=== PATIENT | female | born 1960 | race Caucasian/White ===

== ENCOUNTER 2017-07-05 17:21 | Emergency (ER) | payer MEDICARE, OTHER | END 2017-07-05 18:07 | disposition home or self-care (01) | LOC: M ED 17:21 | DX: Z76.0 Encounter for issue of repeat prescription (principal); M54.5 Low back pain; G89.29 Other chronic pain; Z98.1 Arthrodesis status; Z88.8 Allergy status to other drugs, medicaments and biological substances; Z79.899 Other long term (current) drug therapy; Z79.891 Long term (current) use of opiate analgesic | CPT/HCPCS: 99282 ==

== ENCOUNTER 2018-12-07 22:10 | Inpatient (IN) | payer MEDICARE, OTHER ==
[~2018-12-07] VITALS: Ht 170.2 cm; Wt 59.1 kg
[~2018-12-07 22:10] MED LIST: AMIT25TA PO; CYCL10TA PO; CYMB60CA3 PO; OXYCO5TA GT; ROPI2TAB PO
[2018-12-07] MEDS ORDERED: ROPI2TAB PO (23:23)
[2018-12-08] MEDS ORDERED: LORazepam 1 MG TAB PO ONE ×2 (07:30→18:00)
[2018-12-08] MEDS ORDERED: MAALOX 30 ML SUSP *UDC PO PRN (13:00)
[2018-12-08] MEDS ORDERED: rOPINIRole 2MG TAB PO PRN (13:00)
[2018-12-08] MEDS ORDERED: MOM 30ML SUSPENSION UDC PO PRN (13:00)
[2018-12-08 15:06] VITALS: BP 130/68
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
[2018-12-08 15:10] VITALS: BP 130/68
[2018-12-08] MEDS: MULTIVITAMINS/MINERALS THERAP 1 TAB PO SCH (16:24)
[2018-12-08 19:39] VITALS: BP 146/80
[2018-12-08] MEDS: LORazepam 2 MG TAB PO PRN (19:45)
[2018-12-08] MEDS ORDERED: LOPERAMIDE 2 MG CAPLET PO ONE (20:00)
[2018-12-08] MEDS: traZODone 50 MG TAB PO PRN (20:35)
[2018-12-08] MEDS: THIAMINE 100 MG TAB PO SCH (20:35)
[2018-12-09 05:00] VITALS: BP 122/59
[2018-12-09 06:30] VITALS: BP 122/59
[2018-12-09 06:38] LABS: BASO # 0.1 10^3/uL (0.0-0.2); BASO % 1.1 % (0.0-1.0); EOS # 0.1 10^3/uL (0.0-0.5); EOS % 1.9 % (0.0-3.0); HEMATOCRIT 41.8 % (36.0-47.0); HEMOGLOBIN 14.8 g/dl (12.0-15.5); LYMPH # 2.4 10^3/uL (1.5-5.0); LYMPH % 44.7 % (24.0-44.0); MEAN CORPUSCULAR HEMOGLOBIN 31.7 pg (27.0-33.0); MEAN CORPUSCULAR HGB CONC 35.4 g/dl (32.0-36.5); MEAN CORPUSCULAR VOLUME 89.5 fl (80.0-96.0); MONO # 0.5 10^3/uL (0.0-0.8); MONO % 9.2 % (0.0-5.0); NEUTROPHILS # 2.3 10^3/uL (1.5-8.5); NEUTROPHILS % 42.7 % (36.0-66.0); PLATELET COUNT, AUTOMATED 304 10^3/uL (150-450); RED BLOOD COUNT 4.67 10^6/uL (4.00-5.40); WHITE BLOOD COUNT 5.4 10^3/uL (4.0-10.0)
[2018-12-09 07:17] LABS: ALT/SGPT 21 U/L (12-78); BILIRUBIN,TOTAL 1.3 MG/DL (0.2-1.0); BLOOD UREA NITROGEN 8 MG/DL (7-18); CALCIUM LEVEL 9.7 MG/DL (8.5-10.1); CARBON DIOXIDE LEVEL 29 MEQ/L (21-32); CHLORIDE LEVEL 105 MEQ/L (98-107); CREATININE FOR GFR 0.66 MG/DL (0.55-1.30); GLOMERULAR FILTRATION RATE > 60.0 (>51); GLUCOSE, FASTING 92 MG/DL (70-100); POTASSIUM SERUM 4.4 MEQ/L (3.5-5.1); SODIUM LEVEL 138 MEQ/L (136-145); TOTAL PROTEIN 7.3 GM/DL (6.4-8.2)
[2018-12-09 07:18] LABS: ALBUMIN 3.8 GM/DL (3.2-5.2); FREE THYROXINE INDEX 3.3 % (1.3-4.8); T UPTAKE 33 % (30-39); THYROXINE (T4) 10.1 UG/DL (4.5-12.0)
[2018-12-09 08:45] VITALS: BP 144/70
[2018-12-09] MEDS: LORazepam 2 MG TAB PO PRN (08:50)
[2018-12-09] MEDS: MULTIVITAMINS/MINERALS THERAP 1 TAB PO SCH (08:50)
[2018-12-09] MEDS: THIAMINE 100 MG TAB PO SCH ×2 (08:50→21:49)
[2018-12-09] MEDS: FOLIC ACID 1 MG TAB PO SCH (08:50)
[2018-12-09] MEDS: ACETAMINOPHEN TAB 650MG DOSE (2X325MG) PO PRN (08:51)
--- NOTE | 2018-12-09 10:16 | REP ---
Four views right wrist: 12/09/2018. Indication: Right wrist pain. Findings: There is no acute fracture, subluxation or dislocation. Osseous alignment is anatomic. No erosive osseous lesions are detected. Mild medial soft tissue edema is noted. Impression: No acute fracture. Electronically Signed by Ritesh Schuster DO 12/09/2018 10:08 A
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
[2018-12-09] MEDS: traMADol 50 MG TAB PO PRN (13:39)
[2018-12-09 13:40] VITALS: BP 123/74
[2018-12-09] MEDS ORDERED: diphenhydrAMINE 50 MG CAP PO ONE (15:00)
[2018-12-09] MEDS ORDERED: LORazepam 2 MG TAB PO ONE (15:00)
[2018-12-09] MEDS ORDERED: OLANZapine ORAL DISINTEGRATING TAB 5MG PO ONE (15:00)
[2018-12-09 16:51] VITALS: BP 124/74
[2018-12-09] MEDS: traZODone 50 MG TAB PO PRN (21:49)
[2018-12-10 06:15] VITALS: BP 142/89
[2018-12-10] MEDS: FOLIC ACID 1 MG TAB PO SCH (09:34)
[2018-12-10] MEDS: THIAMINE 100 MG TAB PO SCH ×2 (09:34→21:00)
[2018-12-10] MEDS: MULTIVITAMINS/MINERALS THERAP 1 TAB PO SCH (09:34)
--- NOTE | 2018-12-10 11:28 | MHIPNPDOC ---
[facility] Progress Note Progress Note Inpatient Progress Note Nayely Webster MRN: N/A Date of : N/A Date of Service: 12/10/2018 History of Present Illness The patient is a 58-year-old woman with a history of PTSD, [facility] She reportedly had difficulty with severe agitation, increasing alcohol use and difficulty lashing out at her where she became extremely violent and unable to be controlle d. She was noted to be in the ER slamming her head and claims she had triggered PTSD by reported medical problems namely chronic pain. When I attempted to me with her, she had just been sedated due to increasing agitation and was fairly tired and sleepy. She did report she had had a history of trauma and had increasing anxiety, intrusive memories, flashbacks and difficulty controlling her anger with sudden yelling and screaming. She reports that she utilizes the alcohol for chronic pain. Her is very supportive and reports that this is unusual for the patient and this is fairly unusual for her baseline behaviors. Interval History The patient is met with this evening. She has been doing better. She did have some episodes of being irritated and upset, however she was given Haldol which was quite helpful. She reports the Haldol helps the level of her mood and makes her much less agitated. She was friendly and amenable when I met with her. Nursing staff notes that at times she become agitated, however it appears that is more of a cluster B specific issue where she focuses on certain individuals that she does not like and does not wish to work with where she becomes irritated, however she has generally been friendly with certain staff. She describes that she is doing better but wishes to go home tomorrow as she feels she has found the maximum benefit she will get here. She reports she is unhappy with the various psychotic individuals on her unit that stare at her and reports that she would like to be discharged tomorrow. She reports she is tolerating the Haldol well and feels good. Review Of Systems General: Denies fever or appetite changes Cardiovascular: Denies Chest pain or palpitations GI: Denies Nausea, vomiting, or bowel changes Respiratory: Denies shortness of breath or cough Neuro: Denies dizziness, tremors Derm: Denies any rashes or pruritus : Denies dysuria or urinary dysfunction MSK: Denies any muscle tightness or stiffness HEENT: Denies any vision changes or headaches Heme/Lymph: denies any bruising or bleeding Endo: denies any cold/heat intolerance or water intake changes Psychotherapy None on this visit. Vital Signs Reviewed. Mental Status Examination General: Well dressed with good hygiene Speech: Spontaneous and fluid Thought processes: Linear and logical MSK: Smooth and coordinated gait, no signs of tremors or involuntary orofacial movements Thought content: Future orientated Abstract reasoning, and computation: Intact Description of associations: Intact Description of abnormal or psychotic thoughts: Denies any suicidal or homicidal ideation. Denies any auditory or visual hallucinations. Does not appear to be responding to internal stimuli. Does not appear to be endorsing any bizarre or paranoid ideation. Judgment: fair Insight: fair Orientation: Alert and orientated 3 Cognition: Grossly normal Recent and remote memory: Intact Attention span and concentration: Intact Fund of knowledge: Adequate Mood: "okay" Affect: Euthymic with a full range. Diagnoses PTSD, acute. Alcohol use disorder, unspecified. Somatic symptom disorder with predominant pain. Assessment and Plan PTSD: We will order Haldol 5 mg BID, appears to be helpful. Discussed with the patient the risks, benefits and potential side effects of Haldol as well as the long-term risks of abuse with tardive dyskinesia as well as alternatives. Discussed the off-label nature of Haldol and the use in PTSD. Alcohol use disorder: We will have alcohol withdrawal prophylaxis. Disposition Discharge tomorrow. Time Spent 15 minutes [id number]. Vital Signs Vital Signs Date Time Temp Pulse Resp B/P (MAP) Pulse Ox O2 Delivery O2 Flow Rate FiO2 12/10/18 06:15 98.2 92 18 142/89 (106) 12/08/18 15:10 99 Room Air Current Medications Current Medications Medications (Trade) Dose Ordered Sig/Korey Route PRN Reason Start Time Stop Time Status Last Admin Dose Admin Acetaminophen (Tylenol Tab) 650 mg Q6HP PRN PO HEADACHE or DISCOMFORT 12/08/18 13:00 12/09/18 08:51 Al Hydrox/Mg Hydrox/Simethicone (Mylanta) 30 ml Q4HP PRN PO HEARTBURN/INDIGESTION 12/08/18 13:00 Folic Acid (Folic Acid) 1 mg DAILY PO 12/09/18 09:00 12/10/18 09:34 Home Med (Med Rec Complete!) ASDIRECTED XX 12/08/18 13:45 12/08/18 13:45 DC Lorazepam (Ativan) 2 mg ASDIRECTED PRN PO SEE PROTOCOL 12/08/18 13:00 12/09/18 08:50 Magnesium Hydroxide (Milk Of Magnesia) 30 ml DAILYPRN PRN PO CONSTIPATION 12/08/18 13:00 Multivitamins (Theragram-M) 1 tab DAILY PO 12/08/18 09:00 12/10/18 09:34 Ropinirole HCl (Requip) 2 mg TID PRN PO RESTLESSNESS 12/08/18 13:00 Thiamine HCl (Thiamine HCl) 100 mg BID PO 12/08/18 21:00 12/11/18 20:59 12/10/18 09:34 Tramadol HCl (Ultram) 50 mg Q12HP PRN PO PAIN 12/08/18 15:00 12/09/18 13:39 Trazodone HCl (Desyrel) 50 mg QHSP PRN PO INSOMNIA 12/08/18 13:00 12/09/18 21:49 Allergies Coded Allergies: adhesive (Verified Allergy, Severe, RASH ALL OVER BODY, 12/07/18) DERMABOND pregabalin (Verified Allergy, Intermediate, oral swelling, 12/07/18) gabapentin (Verified Adverse Reaction, Intermediate, night terrors, 12/07/18) CINDY LEACH DO Dec 10, 2018 11:28
[2018-12-10] MEDS: HALOPERIDOL 10 MG TAB PO PRN (12:48)
[2018-12-10] MEDS: traMADol 50 MG TAB PO PRN (12:51)
[2018-12-10 14:09] VITALS: BP 140/88
[2018-12-10] MEDS: LORazepam 2 MG TAB PO PRN (14:13)
[2018-12-10 18:00] VITALS: BP 110/58
[2018-12-10] MEDS: HALOPERIDOL 5 MG TAB PO SCH (20:59)
[2018-12-11 06:58] VITALS: BP 129/74
[2018-12-11] MEDS: HALOPERIDOL 10 MG TAB PO PRN (07:40)
[2018-12-11] MEDS: traMADol 50 MG TAB PO PRN (07:40)
--- NOTE | 2018-12-11 09:06 | MHDSPDOC ---
[facility] Discharge Summary Discharge Summary DATE OF ADMISSION: Dec 08, 2018 at 12:50 DATE OF DISCHARGE: 12/11/18 Nayely Webster Discharge Nayely Webster Select Gender MRN: N/A Date of : MM/DD/YYYY Date of Service: 12/11/2018 Diagnoses PTSD, acute. Alcohol use disorder, unspecified. Somatic symptom disorder with predominant pain. History of Present Illness The patient is a 58-year-old woman with a history of PTSD, [facility] She reportedly had difficulty with severe agitation, increasing alcohol use and difficulty lashing out at her where she became extremely violent and unable to be controlled. She was noted to be in the ER slamming her head and claims she had triggered PTSD by reported medical problems namely chronic pain. When I attempted to me with her, she had just been sedated due to increasing agitation and was fairly tired and sleepy. She did report she had had a history of trauma and had increasing anxiety, intrusive memories, flashbacks and difficulty controlling her anger with sudden yelling and screaming. She reports that she utilizes the alcohol for chronic pain. Her is very supportive and reports that this is unusual for the patient and this is fairly unusual for her baseline behaviors. Consultants Involved Hospitalist/PCP screening Treatment and Progress On The Unit The patient was admitted to the inpatient unit where she was noted to have some initial agitation, however, was never violent or severely aggressive. She did require some PRN medications and she knows that the Haldol was fairly helpful for her mood. She was started on Haldol 5 mg BID with positive effects. The patient improved and was able to engage in better engagement with the treatment team. She did still have some symptoms of irritation and anxiety, however, she requested to leave and no wonder wish to stay on a voluntary admission. On the day of discharge, she did not meet involuntary criteria as she had been denying suicidal or homicidal ideation throughout her admission. Her balance remained in behavioral control for the most part during her admission, it was not significantly impaired so much so that she is unable to care for herself by her mental illness and was able to cooperate with her discharge planning sufficiently well and thus was discharged in good pace. Discharge Assessment 58-year-old woman with a history of PTSD and possible reactivation symptoms, presents after becoming more aggressive at home. She is treated with Haldol. She has a history of being treated with antidepressants with no results. Mental Status Examination General: Well dressed with good hygiene Speech: Spontaneous and fluid Thought processes: Linear and logical MSK: Smooth and coordinated gait, no signs of tremors or involuntary orofacial movements Thought content: Future orientated Abstract reasoning, and computation: Intact Description of associations: Intact Description of abnormal or psychotic thoughts: Denies any suicidal or homicidal ideation. Denies any auditory or visual hallucinations. Does not appear to be responding to internal stimuli. Does not appear to be endorsing any bizarre or paranoid ideation. Judgment: fair Insight: fair Orientation: Alert and orientated 3 Cognition: Grossly normal Recent and remote memory: Intact Attention span and concentration: Intact Fund of knowledge: Adequate Mood: "okay" Affect: Euthymic with a full range Follow Up The social work team worked during the predischarge meeting in order to evaluate for further issues of lethality address them fully before discharge. They worked on safety planning with the patient's family members in order to ensure that the patient will have a safe and effective discharge. Time Spent The amount of time spent in the coordination of care for this patient was approximately 30 minutes. Vital Signs/I&Os Vital Signs Date Time Temp Pulse Resp B/P (MAP) Pulse Ox O2 Delivery O2 Flow Rate FiO2 12/11/18 07:40 18 12/11/18 06:58 97.3 58 129/74 (92) 12/08/18 15:10 99 Room Air Medications Scheduled Haloperidol (Haloperidol) 5 Mg Tablet, 5 MG PO BID for mood for 7 Days, #14 Scheduled PRN Ropinirole HCl (Ropinirole HCl) 2 Mg Tablet, 2 MG PO TID PRN for RESTLESSNESS, (Reported) Allergies Coded Allergies: adhesive (Verified Allergy, Severe, RASH ALL OVER BODY, 12/07/18) DERMABOND pregabalin (Verified Allergy, Intermediate, oral swelling, 12/07/18) gabapentin (Verified Adverse Reaction, Intermediate, night terrors, 12/07/18) CINDY LEACH DO Dec 11, 2018 09:06
[2018-12-11] MEDS ORDERED: HALO5TA PO (09:13)
[2018-12-11] MEDS: HALOPERIDOL 5 MG TAB PO SCH (09:33)
[2018-12-11] MEDS: THIAMINE 100 MG TAB PO SCH (09:33)
[2018-12-11] MEDS: MULTIVITAMINS/MINERALS THERAP 1 TAB PO SCH (09:33)
[2018-12-11] MEDS: FOLIC ACID 1 MG TAB PO SCH (09:33)
[2018-12-11] MEDS: ACETAMINOPHEN TAB 650MG DOSE (2X325MG) PO PRN (11:40)
== END 2018-12-11 11:55 | disposition home or self-care (01) | DRG 882 ==
LOC: M ED 22:10 → M ED INP 12-08 12:50 → M PSY 12-08 14:00
PROVIDERS: ADMIT Psychiatry & Neurology Addiction Medicine; ATTEND Psychiatry & Neurology Addiction Medicine
DX: F43.11 Post-traumatic stress disorder, acute (principal); F10.20 Alcohol dependence, uncomplicated; F45.1 Undifferentiated somatoform disorder; Z79.899 Other long term (current) drug therapy; Z88.8 Allergy status to other drugs, medicaments and biological substances; Z91.040 Latex allergy status; M54.5 Low back pain; M54.2 Cervicalgia; M79.601 Pain in right arm; M79.602 Pain in left arm; Z98.1 Arthrodesis status

== ENCOUNTER 2019-01-04 11:10 | Inpatient (IN) | payer MEDICARE, OTHER ==
[~2019-01-04] VITALS: Ht 170.2 cm; Wt 62.2 kg
[~2019-01-04 11:10] MED LIST changes: +HALO5TA PO; +NICOTINE 21MG/24HR 1 EA TRANSDERMAL TD SCH
[2019-01-04 12:04] LABS: HEMATOCRIT 49.3 % (36.0-47.0); HEMOGLOBIN 17.6 g/dl (12.0-15.5); MEAN CORPUSCULAR HEMOGLOBIN 31.9 pg (27.0-33.0); MEAN CORPUSCULAR HGB CONC 35.7 g/dl (32.0-36.5); MEAN CORPUSCULAR VOLUME 89.5 fl (80.0-96.0); PLATELET COUNT, AUTOMATED 428 10^3/uL (150-450); RED BLOOD COUNT 5.51 10^6/uL (4.00-5.40); WHITE BLOOD COUNT 8.5 10^3/uL (4.0-10.0)
[2019-01-04 12:33] LABS: ALBUMIN 4.4 GM/DL (3.2-5.2); ALT/SGPT 22 U/L (12-78); BILIRUBIN,DIRECT 0.2 MG/DL (0.0-0.2); BILIRUBIN,TOTAL 1.4 MG/DL (0.2-1.0); BLOOD UREA NITROGEN 9 MG/DL (7-18); CALCIUM LEVEL 9.6 MG/DL (8.5-10.1); CARBON DIOXIDE LEVEL 23 MEQ/L (21-32); CHLORIDE LEVEL 102 MEQ/L (98-107); CREATININE FOR GFR 0.69 MG/DL (0.55-1.30); GLOMERULAR FILTRATION RATE > 60.0 (>51); GLUCOSE, FASTING 121 MG/DL (70-100); POTASSIUM SERUM 3.8 MEQ/L (3.5-5.1); SALICYLATE LEVEL < 1.7 MG/DL (5.0-30.0); SODIUM LEVEL 137 MEQ/L (136-145); TOTAL PROTEIN 8.3 GM/DL (6.4-8.2)
[2019-01-04 12:34] LABS: ACETAMINOPHEN LEVEL < 2.0 UG/ML (10.0-30.0); ETHYL ALCOHOL (ETHANOL) < 0.003 % (0.000-0.010)
[2019-01-04 12:36] LABS: AMPHETAMINES LEVEL URINE NEGATIVE (NEGATIVE); BARBITURATES URINE NEGATIVE (NEGATIVE); BENZODIAZEPINES URINE NEGATIVE (NEGATIVE); CANNABINOIDS URINE POSITIVE (NEGATIVE); COCAINE METABOLITE URINE NEGATIVE (NEGATIVE); METHADONE URINE NEGATIVE (NEGATIVE); OPIATES URINE NEGATIVE (NEGATIVE); PHENCYCLIDINE URINE NEGATIVE (NEGATIVE)
[2019-01-04] MEDS ORDERED: LORazepam 2 MG TAB PO STA ×2 (13:43→16:23)
[2019-01-04] MEDS ORDERED: rOPINIRole 2MG TAB PO PRN (16:00)
[2019-01-04 19:11] VITALS: BP 141/81
[2019-01-04] MEDS: OLANZapine ORAL DISINTEGRATING TAB 5MG PO PRN (19:37)
[2019-01-05 06:24] VITALS: BP 130/88
[2019-01-05] MEDS: ACETAMINOPHEN TAB 650MG DOSE (2X325MG) PO PRN (08:05)
[2019-01-05] MEDS: MULTIVITAMINS/MINERALS THERAP 1 TAB PO SCH (09:00)
[2019-01-05] MEDS: FOLIC ACID 1 MG TAB PO SCH (09:00)
[2019-01-05] MEDS ORDERED: LORazepam 2 MG TAB PO PRN (10:30)
[2019-01-05] MEDS: THIAMINE 100 MG TAB PO SCH ×2 (10:30→21:50)
[2019-01-05 10:40] VITALS: BP 124/85
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
[2019-01-05] MEDS ORDERED: BUPRENORPHINE/NALOXONE 8-2MG SUBLINGUAL TABLET(SUBOXONE) SL ONE (15:00)
[2019-01-05 16:16] VITALS: BP 135/79
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
[2019-01-05] MEDS: OLANZapine ORAL DISINTEGRATING TAB 5MG PO PRN (21:50)
[2019-01-06 06:58] VITALS: BP 138/71
[2019-01-06] MEDS: MULTIVITAMINS/MINERALS THERAP 1 TAB PO SCH (08:30)
[2019-01-06] MEDS: THIAMINE 100 MG TAB PO SCH ×2 (08:30→20:11)
[2019-01-06] MEDS: FOLIC ACID 1 MG TAB PO SCH (08:31)
[2019-01-06] MEDS: BUPRENORPHINE/NALOXONE 8-2MG SUBLINGUAL TABLET(SUBOXONE) SL SCH (09:44)
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
[2019-01-06 16:55] VITALS: BP 150/75
[2019-01-06] MEDS: traZODone 50 MG TAB PO PRN (20:33)
[2019-01-07 05:54] VITALS: BP 127/77
[2019-01-07] MEDS: THIAMINE 100 MG TAB PO SCH ×2 (08:29→20:31)
[2019-01-07] MEDS: BUPRENORPHINE/NALOXONE 8-2MG SUBLINGUAL TABLET(SUBOXONE) SL SCH (08:29)
[2019-01-07] MEDS: MULTIVITAMINS/MINERALS THERAP 1 TAB PO SCH (08:29)
[2019-01-07] MEDS: FOLIC ACID 1 MG TAB PO SCH (08:29)
[2019-01-07] MEDS: ANALGESIC BALM CRM 120 GM TOP PRN ×2 (12:10→18:06)
[2019-01-07 16:12] VITALS: BP 148/75
[2019-01-07] MEDS: OLANZapine ORAL DISINTEGRATING TAB 5MG PO PRN (17:46)
[2019-01-07] MEDS: traZODone 50 MG TAB PO PRN (20:31)
[2019-01-08 06:33] VITALS: BP 149/62
[2019-01-08] MEDS: MULTIVITAMINS/MINERALS THERAP 1 TAB PO SCH (08:18)
[2019-01-08] MEDS: BUPRENORPHINE/NALOXONE 8-2MG SUBLINGUAL TABLET(SUBOXONE) SL SCH (08:18)
[2019-01-08] MEDS: FOLIC ACID 1 MG TAB PO SCH (08:18)
[2019-01-08] MEDS: ANALGESIC BALM CRM 120 GM TOP PRN ×3 (08:20→20:56)
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
[2019-01-08] MEDS: OLANZapine ORAL DISINTEGRATING TAB 5MG PO PRN ×2 (11:39→18:02)
[2019-01-08 16:41] VITALS: BP 142/77
[2019-01-08] MEDS: traZODone 50 MG TAB PO PRN (20:56)
[2019-01-09 05:47] VITALS: BP 121/71
[2019-01-09] MEDS: FOLIC ACID 1 MG TAB PO SCH (08:42)
[2019-01-09] MEDS: MULTIVITAMINS/MINERALS THERAP 1 TAB PO SCH (08:43)
[2019-01-09] MEDS: BUPRENORPHINE/NALOXONE 8-2MG SUBLINGUAL TABLET(SUBOXONE) SL SCH (08:43)
[2019-01-09] MEDS: OLANZapine ORAL DISINTEGRATING TAB 5MG PO PRN ×2 (10:24→16:06)
[2019-01-09] MEDS: MOM 30ML SUSPENSION UDC PO PRN (14:33)
[2019-01-09] MEDS: ANALGESIC BALM CRM 120 GM TOP PRN (14:34)
[2019-01-09 16:17] VITALS: BP 141/73
[2019-01-10 06:00] VITALS: BP 122/81
[2019-01-10] MEDS: OLANZapine ORAL DISINTEGRATING TAB 5MG PO PRN ×4 (06:03→18:31)
[2019-01-10] MEDS: MOM 30ML SUSPENSION UDC PO PRN (07:14)
[2019-01-10] MEDS: FOLIC ACID 1 MG TAB PO SCH (08:10)
[2019-01-10] MEDS: MULTIVITAMINS/MINERALS THERAP 1 TAB PO SCH (08:10)
[2019-01-10] MEDS: BUPRENORPHINE/NALOXONE 8-2MG SUBLINGUAL TABLET(SUBOXONE) SL SCH (08:10)
[2019-01-10 15:38] VITALS: BP 143/65
[2019-01-10] MEDS ORDERED: MAGNESIUM CITRATE 300 ML BTL PO ONE (17:00)
[2019-01-10] MEDS: traZODone 50 MG TAB PO PRN (20:15)
[2019-01-10] MEDS: ACETAMINOPHEN TAB 650MG DOSE (2X325MG) PO PRN (20:16)
[2019-01-11 06:23] VITALS: BP 130/75
[2019-01-11] MEDS: FOLIC ACID 1 MG TAB PO SCH (08:09)
[2019-01-11] MEDS: MULTIVITAMINS/MINERALS THERAP 1 TAB PO SCH (08:09)
[2019-01-11] MEDS: BUPRENORPHINE/NALOXONE 8-2MG SUBLINGUAL TABLET(SUBOXONE) SL SCH (08:09)
[2019-01-11] MEDS: OLANZapine ORAL DISINTEGRATING TAB 5MG PO PRN (09:35)
[2019-01-11] MEDS ORDERED: BUPR1SUB5 SL (10:40)
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
[2019-01-11] MEDS ORDERED: OLAN5TAB PO (11:27)
[2019-01-11] MEDS ORDERED: NARC1SPR NARES (18:10)
[2019-01-13] MEDS ORDERED: OLAN10TA2 PO (11:49)
== END 2019-01-11 11:30 | disposition home or self-care (01) | DRG 755 ==
LOC: M ED 11:10 → M ED INP 15:53 → M PSY 18:03
PROVIDERS: ADMIT Psychiatry & Neurology Addiction Medicine; ATTEND Psychiatry & Neurology Addiction Medicine
DX: F43.25 Adjustment disorder with mixed disturbance of emotions and conduct (principal); R45.851 Suicidal ideations; F10.10 Alcohol abuse, uncomplicated; F60.3 Borderline personality disorder; F43.10 Post-traumatic stress disorder, unspecified; Z79.899 Other long term (current) drug therapy; Z88.8 Allergy status to other drugs, medicaments and biological substances; M54.2 Cervicalgia; M54.5 Low back pain

== ENCOUNTER 2019-02-01 10:34 | Inpatient (IN) | payer OTHER ==
[~2019-02-01] VITALS: Ht 170.2 cm; Wt 65.5 kg
[~2019-02-01 10:34] MED LIST changes: +BUPR1SUB5 SL; +NARC1SPR NARES; -NICOTINE 21MG/24HR 1 EA TRANSDERMAL TD SCH; +OLAN10TA2 PO; +OLAN5TAB PO
[2019-02-01 12:55] LABS: HEMATOCRIT 42.6 % (36.0-47.0); HEMOGLOBIN 14.4 g/dl (12.0-15.5); MEAN CORPUSCULAR HEMOGLOBIN 30.8 pg (27.0-33.0); MEAN CORPUSCULAR HGB CONC 33.8 g/dl (32.0-36.5); PLATELET COUNT, AUTOMATED 414 10^3/uL (150-450); RED BLOOD COUNT 4.68 10^6/uL (4.00-5.40); WHITE BLOOD COUNT 7.9 10^3/uL (4.0-10.0)
[2019-02-01 13:31] LABS: ACETAMINOPHEN LEVEL < 2.0 UG/ML (10.0-30.0); ALBUMIN 3.7 GM/DL (3.2-5.2); ALT/SGPT 24 U/L (12-78); BILIRUBIN,DIRECT 0.2 MG/DL (0.0-0.2); BILIRUBIN,TOTAL 0.4 MG/DL (0.2-1.0); BLOOD UREA NITROGEN 7 MG/DL (7-18); CALCIUM LEVEL 9.4 MG/DL (8.5-10.1); CARBON DIOXIDE LEVEL 26 MEQ/L (21-32); CHLORIDE LEVEL 108 MEQ/L (98-107); CREATININE FOR GFR 0.64 MG/DL (0.55-1.30); ETHYL ALCOHOL (ETHANOL) < 0.003 % (0.000-0.010); GLOMERULAR FILTRATION RATE > 60.0 (>51); GLUCOSE, FASTING 105 MG/DL (70-100); HCG, SERUM QUALITATIVE NEGATIVE (NEGATIVE); POTASSIUM SERUM 4.7 MEQ/L (3.5-5.1); SALICYLATE LEVEL < 1.7 MG/DL (5.0-30.0); SODIUM LEVEL 142 MEQ/L (136-145)
[2019-02-01 13:46] LABS: AMPHETAMINES LEVEL URINE NEGATIVE (NEGATIVE); BARBITURATES URINE NEGATIVE (NEGATIVE); BENZODIAZEPINES URINE NEGATIVE (NEGATIVE); CANNABINOIDS URINE POSITIVE (NEGATIVE); COCAINE METABOLITE URINE NEGATIVE (NEGATIVE); METHADONE URINE NEGATIVE (NEGATIVE); OPIATES URINE NEGATIVE (NEGATIVE); PHENCYCLIDINE URINE NEGATIVE (NEGATIVE)
[2019-02-01] MEDS ORDERED: NARC1SPR NARES (14:16)
[2019-02-01] MEDS ORDERED: BUPR1SUB5 SL (14:16)
[2019-02-01] MEDS ORDERED: OLAN10TA2 PO (14:16)
[2019-02-01] MEDS ORDERED: traZODone 50 MG TAB PO PRN (15:45)
[2019-02-01] MEDS ORDERED: ACETAMINOPHEN TAB 650MG DOSE (2X325MG) PO PRN (15:45)
[2019-02-01] MEDS ORDERED: MOM 30ML SUSPENSION UDC PO PRN (15:45)
[2019-02-01] MEDS ORDERED: MAALOX 30 ML SUSP *UDC PO PRN (15:45)
[2019-02-01 16:15] VITALS: BP 119/65
[2019-02-01] MEDS: OLANZapine 5 MG TAB PO PRN (16:47)
[2019-02-02 06:01] VITALS: BP 121/57
[2019-02-02] MEDS: OLANZapine 5 MG TAB PO PRN ×2 (10:33→17:44)
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
--- NOTE | 2019-02-02 13:20 | REP ---
Clinical: Trauma. Technique: AP, lateral, bilateral oblique views left hand . Findings: The osseous structures and joint spaces are intact and normal. There is no evidence for acute fracture or dislocation. Surrounding soft tissues are unremarkable. No subcutaneous emphysema or radiodense foreign body. Impression: No acute fracture or dislocation. Electronically Signed by Jonh Riley MD 02/02/2019 01:11 P
--- NOTE | 2019-02-02 13:22 | REP ---
Clinical: Trauma. Fall. Technique: Facial bone series (7 total views). Findings: While no definite acute fractures appreciated, subtle injury may be obscured. Impression: No obvious acute fracture. Electronically Signed by Jonh Riley MD 02/02/2019 01:13 P
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
[2019-02-02] MEDS: VENLAFAXINE **XR** 37.5 MG CAPSULE PO SCH (15:18)
[2019-02-02 16:15] VITALS: BP 109/65
[2019-02-03 06:28] VITALS: BP 114/60
[2019-02-03] MEDS: VENLAFAXINE **XR** 37.5 MG CAPSULE PO SCH (08:01)
[2019-02-03] MEDS: OLANZapine 5 MG TAB PO PRN (08:01)
[2019-02-03] MEDS: IBUPROFEN 600 MG TAB PO PRN (09:15)
--- NOTE | 2019-02-03 14:59 | MHIPN ---
DATE: 02/03/2019 VITAL SIGNS: Temperature 99.5, pulse 65, respirations 18, blood pressure 114/60. CURRENT MEDICATIONS: - Effexor XR 37.5 mg in the morning - trazodone 50 mg at night as needed - Zyprexa 5 mg every 6 hours as needed HISTORY OF PRESENT ILLNESS: The patient still complains of back pain from a fall she suffered earlier in the week. She has been on the Effexor for several days now. She has found it helpful. She is not as weepy. She still gets depressed but not as severe. She is tolerating it well. She has no gastrointestinal side effects. There is a past reference to her being on Effexor before; however, she denies this. MENTAL STATUS EXAMINATION: The patient is alert, oriented and cooperative. She is resting, comfortably in her room. Affect is somewhat improved. She no longer appears sullen. Affect is still sad. Mood is mildly to moderately depressed. She has passive suicidal thoughts but no active intents. No signs of agitation in the milieu. Insight and judgment appear fair. Grooming and hygiene appear within normal limits. The patient is not psychotic. ASSESSMENT: Appears to be responding well to low dose Effexor XR, which will be ramped up gradually as tolerated. DIAGNOSES: 1. Adjustment disorder with mixed emotional features. 2. Borderline personality disorder. 3. Posttraumatic stress disorder (PTSD). 4. Depressive disorder, unspecified. 6. Chronic pain syndrome. PLAN: Increase Effexor XR to 75 mg in the morning. Encourage involvement in hospital milieu. The patient will discuss restarting Suboxone with Dr. Prabhakar upon his return on Friday.
[2019-02-03 16:38] VITALS: BP 111/63
[2019-02-04] MEDS: IBUPROFEN 600 MG TAB PO PRN ×2 (04:09→15:28)
[2019-02-04] MEDS: OLANZapine 5 MG TAB PO PRN ×2 (04:09→15:27)
[2019-02-04 06:25] VITALS: BP 124/61
[2019-02-04] MEDS: VENLAFAXINE **XR** 75MG CAPSULE PO SCH (09:22)
[2019-02-04 16:05] VITALS: BP 122/63
--- NOTE | 2019-02-04 16:14 | MHIPN ---
DATE: 02/04/2019 VITAL SIGNS: Temperature 97.8, pulse 68, respirations 16, blood pressure 124/61. CURRENT MEDICATIONS: - Effexor XR 75 mg in the morning - Zyprexa 5 mg every 6 hours as needed HISTORY OF PRESENT ILLNESS: The patient is still complaining of back pain at a level of 7 out of 10. She did not sleep well last night. She woke up in the middle of the night and asked for pain medicine. The patient states that her mood is improved since being on the Effexor, she feels more hopeful. She is tolerating the medication well. Her visited on . Her is quite supportive. The patient is isolating in her room with little involvement in therapeutic milieu. MENTAL STATUS EXAMINATION: The patient is alert, awake, cooperative. Mood is still somewhat depressed, but affect is brighter. She is not voicing suicidal thoughts today. She denies current psychotic symptoms. No signs of paranoia or thought disorder. Grooming and hygiene appear reasonably good. ASSESSMENT: The patient is tolerating Effexor XR dosage well. DIAGNOSES: 1. Adjustment disorder with mixed emotional features. 2. Borderline personality disorder. 3. Posttraumatic stress disorder (PTSD). 4. Depressive disorder, unspecified. 5. Chronic pain syndrome. PLAN: Continue present management. The patient is to see Dr. Prabhakar upon his return tomorrow.
[2019-02-05] MEDS: OLANZapine 5 MG TAB PO PRN (06:00)
[2019-02-05] MEDS: IBUPROFEN 600 MG TAB PO PRN (06:00)
[2019-02-05 06:40] VITALS: BP 132/79
[2019-02-05] MEDS ORDERED: BUPR1SUB5 SL (08:54)
--- NOTE | 2019-02-05 08:58 | MHDSPDOC ---
[facility] Discharge Summary Discharge Summary DATE OF ADMISSION: Feb 01, 2019 at 15:32 DATE OF DISCHARGE:02/05/19 Discharge Nayely Webster MRN: N/A Date of : N/A Date of Service: 02/05/2019 Diagnoses Adjustment disorder with disruption of mood and conduct. PTSD, chronic. Borderline personality disorder. Alcohol use disorder, unspecified. Somatic symptom disorder with predominant pain. History of Present Illness The patient a 58-year-old woman who presented claiming suicidal ideation due to chronic back pain. She had been recently discharged on buprenorphine that had treat her chronic pain, however, she had neglected to follow up with a buprenorphine provider and ran out of medications. She had presented irritable and reportedly quite upset. Consultants Involved Hospitalist/PCP screening Treatment and Progress On The Unit The patient was admitted to the inpatient unit and subsequently buprenorphine was not restarted as the covering physician was not comfortable with restarting it due to the patient's insistence on it. She was started on Effexor and increased to 75 mg with little effect. The patient reports she did not much care for it, however, after discussing with the patient that she would either need to come see myself or establish a buprenorphine provider and that a small supply could be arranged, the patient was amenable. Her suicidality resolved after a very short admission. When her pain levels had dropped, she did demonstrate some borderline personality disorder traits that are consistent, however, on the date of discharge she denied any suicidal or homicidal ideation, had a normal mental status exam, was amenable with discharge planning and declined further voluntary admission. Discharge Assessment 58-year-old woman with borderline traits, PTSD and some somatic symptom disorder, presents reportedly out of difficulty with chronic pain, neglecting to a followed up with buprenorphine providers and thus reported that she was suicidal. She is treated with a short admission and discharging her. Mental Status Examination General: Well dressed with good hygiene Speech: Spontaneous and fluid Thought processes: Linear and logical MSK: Smooth and coordinated gait, no signs of tremors or involuntary orofacial movements Thought content: Future orientated Abstract reasoning, and computation: Intact Description of associations: Intact Description of abnormal or psychotic thoughts: Denies any suicidal or homicidal ideation. Denies any auditory or visual hallucinations. Does not appear to be responding to internal stimuli. Does not appear to be endorsing any bizarre or paranoid ideation. Judgment: fair Insight: fair Orientation: Alert and orientated 3 Cognition: Grossly normal Recent and remote memory: Intact Attention span and concentration: Intact Fund of knowledge: Adequate Mood: "okay" Affect: Euthymic with a full range Follow Up The social work team worked during the predischarge meeting in order to evaluate for further issues of lethality address them fully before discharge. They worked on safety planning with the patient's family members in order to ensure that the patient will have a safe and effective discharge. Time Spent The amount of time spent in the coordination of care for this patient was approximately 90 minutes. Friday Vital Signs/I&Os Vital Signs Date Time Temp Pulse Resp B/P (MAP) Pulse Ox O2 Delivery O2 Flow Rate FiO2 02/05/19 06:40 99.1 65 12 132/79 (96) Room Air 02/01/19 16:15 96 Medications Scheduled Buprenorphine HCl/Naloxone HCl (Buprenorphin-Naloxon 8-2 mg Sl) 1 Each Tab.subl, 1 TAB SL DAILY for pain for 7 Days, #7 Scheduled PRN Naloxone HCl (Narcan) 4 Mg [place], 1 SPRAY NARES ONCE PRN for OVERDOSE, (Reported) Olanzapine (Olanzapine) 10 Mg Tablet, 5 MG PO BID PRN for ANXIETY/AGITATION, (Reported) Ropinirole HCl (Ropinirole HCl) 2 Mg Tablet, 2 MG PO TID PRN for RESTLESSNESS, (Reported) Allergies Coded Allergies: adhesive (Verified Allergy, Severe, RASH ALL OVER BODY, 12/07/18) DERMABOND latex (Verified Allergy, Severe, 02/01/19) pregabalin (Verified Allergy, Intermediate, oral swelling, 12/07/18) gabapentin (Verified Adverse Reaction, Intermediate, night terrors, 12/07/18) haloperidol (Verified Adverse Reaction, Unknown, ANXIOUS, 01/04/19) CINDY LEACH DO Feb 05, 2019 08:58
[2019-02-05] MEDS: VENLAFAXINE **XR** 75MG CAPSULE PO SCH (09:23)
== END 2019-02-05 11:27 | disposition home or self-care (01) | DRG 755 ==
LOC: M ED 10:34 → M PSY 15:32
PROVIDERS: ADMIT Psychiatry & Neurology Psychiatry; ATTEND Psychiatry & Neurology Addiction Medicine
DX: F43.25 Adjustment disorder with mixed disturbance of emotions and conduct (principal); R45.851 Suicidal ideations; F43.10 Post-traumatic stress disorder, unspecified; F10.10 Alcohol abuse, uncomplicated; F60.3 Borderline personality disorder; F45.1 Undifferentiated somatoform disorder; Z79.899 Other long term (current) drug therapy; Z91.040 Latex allergy status; Z88.8 Allergy status to other drugs, medicaments and biological substances

== ENCOUNTER 2019-04-26 15:35 | Emergency (ER) | payer MEDICARE, OTHER ==
[~2019-04-26] VITALS: Ht 170.2 cm; Wt 68.2 kg
[~2019-04-26 15:35] MED LIST changes: +CYCL-707 PO; -CYCL10TA PO; -ROPI2TAB PO; +ROPI2TAB3 PO
[2019-04-26] MEDS ORDERED: OLANZapine ORAL DISINTEGRATING TAB 5MG PO ONE (16:15)
[2019-04-26] MEDS ORDERED: diphenhydrAMINE 50MG/ML VIAL (J1200) IM ONE (16:30)
[2019-04-26] MEDS ORDERED: LORazepam 2 MG/ML VIAL (J2060) IM ONE (16:30)
[2019-04-26] MEDS ORDERED: diphenhydrAMINE 50MG/ML VIAL (J1200) As Ordered ONE (16:32)
[2019-04-26] MEDS ORDERED: LORazepam 2 MG/ML VIAL (J2060) As Ordered ONE (16:33)
[2019-04-26 16:38] LABS: HEMATOCRIT 46.3 % (36.0-47.0); HEMOGLOBIN 16.2 g/dl (12.0-15.5); MEAN CORPUSCULAR VOLUME 88.7 fl (80.0-96.0); PLATELET COUNT, AUTOMATED 438 10^3/uL (150-450); RED BLOOD COUNT 5.22 10^6/uL (4.00-5.40); WHITE BLOOD COUNT 10.9 10^3/uL (4.0-10.0)
[2019-04-26 17:10] LABS: ACETAMINOPHEN LEVEL < 2.0 UG/ML (10.0-30.0); ALBUMIN 4.3 GM/DL (3.2-5.2); ALT/SGPT 18 U/L (12-78); BILIRUBIN,DIRECT 0.1 MG/DL (0.0-0.2); BILIRUBIN,TOTAL 0.4 MG/DL (0.2-1.0); BLOOD UREA NITROGEN 12 MG/DL (7-18); CALCIUM LEVEL 9.9 MG/DL (8.8-10.2); CARBON DIOXIDE LEVEL 26 MEQ/L (21-32); CHLORIDE LEVEL 110 MEQ/L (98-107); CREATININE FOR GFR 0.69 MG/DL (0.55-1.30); ETHYL ALCOHOL (ETHANOL) 0.226 % (0.000-0.010); GLOMERULAR FILTRATION RATE > 60.0 (>45); GLUCOSE, FASTING 129 MG/DL (70-100); POTASSIUM SERUM 3.8 MEQ/L (3.5-5.1); SALICYLATE LEVEL 1.9 MG/DL (5.0-30.0); SODIUM LEVEL 145 MEQ/L (136-145); TOTAL PROTEIN 8.1 GM/DL (6.4-8.2)
[2019-04-26 17:15] LABS: AMPHETAMINES LEVEL URINE NEGATIVE (NEGATIVE); BARBITURATES URINE NEGATIVE (NEGATIVE); BENZODIAZEPINES URINE NEGATIVE (NEGATIVE); CANNABINOIDS URINE POSITIVE (NEGATIVE); COCAINE METABOLITE URINE NEGATIVE (NEGATIVE); METHADONE URINE NEGATIVE (NEGATIVE); OPIATES URINE NEGATIVE (NEGATIVE); PHENCYCLIDINE URINE NEGATIVE (NEGATIVE)
[2019-04-26] MEDS ORDERED: HALOPERIDOL 5MG/ML VIAL (J1630 PER 1) As Ordered ONE (17:17)
[2019-04-26] MEDS ORDERED: HALOPERIDOL 5MG/ML VIAL (J1630 PER 1) IM ONE (17:30)
[2019-04-27 11:19] VITALS: BP 135/87
== END 2019-04-27 11:22 | disposition home or self-care (01) ==
LOC: M ED 15:35
DX: F10.229 Alcohol dependence with intoxication, unspecified (principal); G89.29 Other chronic pain; M54.5 Low back pain; F33.9 Major depressive disorder, recurrent, unspecified; F43.10 Post-traumatic stress disorder, unspecified; Z86.59 Personal history of other mental and behavioral disorders; Z91.048 Other nonmedicinal substance allergy status; Z88.8 Allergy status to other drugs, medicaments and biological substances; Z91.040 Latex allergy status; Z79.899 Other long term (current) drug therapy
CPT/HCPCS: 36415; 80048; 80076; 80307; 84443; 85027; 96361; 96372; 96374; 99285; G0480; J1200; J1630; J2060

== ENCOUNTER 2021-02-05 10:47 | Emergency (ER) | payer MEDICARE, OTHER ==
[~2021-02-05] VITALS: Ht 170.2 cm; Wt 68.8 kg
[~2021-02-05 10:47] MED LIST changes: -AMIT25TA PO; +AMIT25TA17 PO; -CYMB60CA3 PO; +CYMB60CA4 PO; -HALO5TA PO; +HALO5TAB33 PO; -OLAN10TA2 PO; +OLAN1TAB16 PO; +OLAN1TAB20 PO; -OLAN5TAB PO
[2021-02-05] MEDS ORDERED: NOXI1TAB PO (11:00)
[2021-02-05 11:42] LABS: HEMOGLOBIN 15.4 g/dl (12.0-15.5); MEAN CORPUSCULAR VOLUME 88.5 fl (80.0-96.0); PLATELET COUNT, AUTOMATED 342 10^3/uL (150-450); RED BLOOD COUNT 4.97 10^6/uL (4.00-5.40)
[2021-02-05] MEDS ORDERED: OLANZapine ORAL DISINTEGRATING TAB 5MG PO ONE (11:50)
[2021-02-05] MEDS ORDERED: LORazepam 2 MG/ML VIAL IM STA (12:35)
[2021-02-05] MEDS ORDERED: LORazepam 2 MG/ML VIAL As Ordered ONE (12:37)
[2021-02-05 13:05] LABS: ACETAMINOPHEN LEVEL < 2.0 UG/ML (10.0-30.0); ALBUMIN 4.7 GM/DL (3.2-5.2); ALT/SGPT 25 U/L (12-78); BILIRUBIN,DIRECT 0.2 MG/DL (0.0-0.2); BILIRUBIN,TOTAL 0.5 MG/DL (0.2-1.0); BLOOD UREA NITROGEN 14 MG/DL (7-18); CALCIUM LEVEL 9.7 MG/DL (8.8-10.2); CARBON DIOXIDE LEVEL 23 MEQ/L (21-32); CHLORIDE LEVEL 109 MEQ/L (98-107); CREATININE FOR GFR 0.85 MG/DL (0.55-1.30); ETHYL ALCOHOL (ETHANOL) 0.225 % (0.000-0.010); GLOMERULAR FILTRATION RATE > 60.0 (>45); GLUCOSE, FASTING 86 MG/DL (70-100); POTASSIUM SERUM 3.7 MEQ/L (3.5-5.1); SALICYLATE LEVEL < 1.7 MG/DL (5.0-30.0); SODIUM LEVEL 143 MEQ/L (136-145); TOTAL PROTEIN 8.4 GM/DL (6.4-8.2)
[2021-02-05] MEDS ORDERED: LORazepam 2 MG TAB PO PRN (13:55)
[2021-02-05] MEDS: THIAMINE 100 MG TAB PO SCH ×2 (14:03→21:00)
[2021-02-05 15:51] LABS: AMPHETAMINES LEVEL URINE NEGATIVE (NEGATIVE); BARBITURATES URINE NEGATIVE (NEGATIVE); BENZODIAZEPINES URINE NEGATIVE (NEGATIVE); CANNABINOIDS URINE POSITIVE (NEGATIVE); COCAINE METABOLITE URINE NEGATIVE (NEGATIVE); METHADONE URINE NEGATIVE (NEGATIVE); OPIATES URINE NEGATIVE (NEGATIVE); PHENCYCLIDINE URINE NEGATIVE (NEGATIVE)
[2021-02-05] MEDS ORDERED: ATOR40TA75 PO (19:11)
[2021-02-05] MEDS ORDERED: LISI10TA22 PO (19:11)
[2021-02-05] MEDS ORDERED: COMMENTS (19:15)
[2021-02-05] MEDS ORDERED: D3-5CAP PO (19:15)
[2021-02-05] MEDS ORDERED: HOME MED LIST COMPLETE! XX SCH (19:15)
[2021-02-06 06:22] VITALS: BP 154/70
[2021-02-06] MEDS ORDERED: FOLIC ACID 1 MG TAB PO SCH (09:00)
[2021-02-06] MEDS ORDERED: MULTIVITAMINS/MINERALS THERAP 1 TAB PO SCH (09:00)
== END 2021-02-06 06:44 | disposition home or self-care (01) ==
LOC: M ED 10:47
DX: F10.129 Alcohol abuse with intoxication, unspecified (principal); Z88.9 Allergy status to unspecified drugs, medicaments and biological substances; Z91.040 Latex allergy status; Z91.048 Other nonmedicinal substance allergy status
CPT/HCPCS: 80048; 80076; 80143; 80307; 82077; 84443; 85027; 96372; 99284; J2060

== ENCOUNTER → 2022-08-14 | Outpatient (REF) | payer MEDICARE, OTHER ==
[~2022-08-14] MED LIST changes: +ATOR40TA75 PO; +COMMENTS; +D3-5CAP PO; +LISI10TA22 PO; +NOXI1TAB PO
[2022-08-14 18:25] LABS: BLOOD UREA NITROGEN 12 MG/DL (9-23); CARBON DIOXIDE LEVEL 29 MMOL/L (20-31); CHLORIDE LEVEL 105 MMOL/L (98-107); CHOLESTEROL LEVEL 193 MG/DL (<200); CHOLESTEROL RISK RATIO 2.49 (<5); CREATININE FOR GFR 0.58 MG/DL (0.55-1.30); GLOMERULAR FILTRATION RATE > 60.0 (>45); GLUCOSE, FASTING 104 MG/DL (74-106); HDL CHOLESTEROL 77.4 MG/DL (>40); NON-HDL-C 115.6 MG/DL; POTASSIUM SERUM 4.9 MMOL/L (3.5-5.1); SODIUM LEVEL 139 MMOL/L (136-145); TRIGLYCERIDES LEVEL 128 MG/DL (<150)
[2022-08-14 18:26] LABS: THYROID STIMULATING HORMONE 1.617 uIU/ML (0.55-4.78)
== END ==
LOC: M LAB REF 17:17
PROVIDERS: ATTEND Pediatrics
DX: I10 Essential (primary) hypertension (principal); E78.5 Hyperlipidemia, unspecified

== ENCOUNTER → 2022-11-01 | Outpatient (REF) | payer MEDICARE, OTHER ==
[~2022-11-01] MED LIST changes: -AMIT25TA17 PO; +AMIT25TA19 PO; +NAPR220C23 PO; -ROPI2TAB3 PO; +ROPI2TAB46 PO
[2022-11-01 17:21] LABS: BASO # 0.1 10^3/uL (0.0-0.2); BASO % 0.6 % (0.0-1.0); EOS % 0.5 % (0.0-3.0); HEMATOCRIT 47.1 % (36.0-47.0); HEMOGLOBIN 16.4 g/dl (12.0-15.5); LYMPH # 2.3 10^3/uL (1.5-5.0); LYMPH % 27.5 % (24.0-44.0); MEAN CORPUSCULAR HGB CONC 34.8 g/dl (32.0-36.5); MEAN CORPUSCULAR VOLUME 86.3 fl (80.0-96.0); MONO # 0.7 10^3/uL (0.0-0.8); MONO % 7.9 % (2.0-8.0); NEUTROPHILS # 5.3 10^3/uL (1.5-8.5); NEUTROPHILS % 63.1 % (36.0-66.0); PLATELET COUNT, AUTOMATED 401 10^3/uL (150-450); RED BLOOD COUNT 5.46 10^6/uL (4.00-5.40); WHITE BLOOD COUNT 8.4 10^3/uL (4.0-10.0)
== END ==
LOC: M LAB REF 16:08
PROVIDERS: ATTEND Pediatrics
DX: R19.5 Other fecal abnormalities (principal)

== ENCOUNTER 2024-05-27 20:00 | Emergency (ER) | payer MEDICARE, OTHER ==
[~2024-05-27] VITALS: Ht 162.6 cm; Wt 63.6 kg
[~2024-05-27 20:00] MED LIST changes: +ABIL1TAB11 PO; +BUPR150T12 PO; +LIDO5TD TD; +TRAZ-252 PO
[2024-05-27 20:45] LABS: HEMATOCRIT 41.8 % (36.0-47.0); HEMOGLOBIN 14.9 g/dl (12.0-15.5); MEAN CORPUSCULAR HGB CONC 35.6 g/dl (32.0-36.5); MEAN CORPUSCULAR VOLUME 86.9 fl (80.0-96.0); PLATELET COUNT, AUTOMATED 372 10^3/uL (150-450); RED BLOOD COUNT 4.81 10^6/uL (4.00-5.40); WHITE BLOOD COUNT 8.8 10^3/uL (4.0-10.0)
[2024-05-27 21:05] LABS: ETHYL ALCOHOL (ETHANOL) 0.249 % (0.000-0.010)
[2024-05-27 21:07] LABS: ALKALINE PHOSPHATASE 97 U/L (35-104); ALT/SGPT 35 U/L (7.0-40); AST/SGOT 28 U/L (<34); BILIRUBIN,DIRECT 0.1 MG/DL (<0.4); BILIRUBIN,TOTAL 0.5 MG/DL (0.3-1.2); BLOOD UREA NITROGEN 7 MG/DL (9-23); CARBON DIOXIDE LEVEL 21 MMOL/L (20-31); CHLORIDE LEVEL 100 MMOL/L (98-107); CREATININE FOR GFR 0.58 MG/DL (0.55-1.30); GLOMERULAR FILTRATION RATE > 90.0 (>45); GLUCOSE, FASTING 118 MG/DL (74-106); POTASSIUM SERUM 3.5 MMOL/L (3.5-5.1); SALICYLATE LEVEL < 3.0 MG/DL (<30); SODIUM LEVEL 135 MMOL/L (136-145); TOTAL PROTEIN 8.1 G/DL (5.7-8.2)
[2024-05-27 21:08] LABS: THYROID STIMULATING HORMONE 3.868 uIU/ML (0.55-4.78)
[2024-05-27 21:14] LABS: BARBITURATES URINE NEGATIVE (NEGATIVE); BENZODIAZEPINES URINE NEGATIVE (NEGATIVE); COCAINE METABOLITE URINE NEGATIVE (NEGATIVE); PHENCYCLIDINE URINE NEGATIVE (NEGATIVE)
[2024-05-27 21:15] LABS: METHADONE URINE NEGATIVE (NEGATIVE); OPIATES URINE NEGATIVE (NEGATIVE)
[2024-05-27 21:16] LABS: AMPHETAMINES LEVEL URINE POSITIVE (NEGATIVE); CANNABINOIDS URINE POSITIVE (NEGATIVE)
[2024-05-28 08:17] VITALS: BP 169/91; TEMP 99.1; O2SAT 93
== END 2024-05-28 13:10 | disposition home or self-care (01) ==
LOC: M ED 20:00
DX: F10.120 Alcohol abuse with intoxication, uncomplicated (principal); F43.10 Post-traumatic stress disorder, unspecified; I10 Essential (primary) hypertension; E78.5 Hyperlipidemia, unspecified; F32.A Depression, unspecified; Z88.8 Allergy status to other drugs, medicaments and biological substances; Z91.040 Latex allergy status; Z79.899 Other long term (current) drug therapy